=== PATIENT | male | born 1960 | race Two or more races ===

== ENCOUNTER 2018-10-31 10:49 | Day surgery (SDC) | payer OTHER ==
[2018-10-24 12:11] VITALS: BMI 36.6
[~2018-10-31 10:49] MED LIST: oxyCODONE HCL 10 MG SUSTAINED ACTING TABLET PO ONE
[2018-10-31] MEDS ORDERED: MIDAZOLAM HCL 2 MG/2 ML SINGLE DOSE VIAL ONE ×2 (13:07→14:24)
[2018-10-31] MEDS ORDERED: DEXAMETHASONE SOD PHOSPHATE/PF 10 MG/ML SDV ONE (13:07)
[2018-10-31] MEDS ORDERED: BUPIVACAINE HCL/PF 2.5 MG/ML - 30 ML VIAL IJ ONE (13:08)
[2018-10-31] MEDS ORDERED: THROMBIN (BOVINE) 5,000 UNIT VIAL TP ONE ×2 (13:19→13:24)
[2018-10-31] MEDS ORDERED: methylPREDNISolone ACET (DEPO) 40 MG/1 ML VIAL ONE (13:30)
[2018-10-31] MEDS ORDERED: LIDOCAINE 1%/EPI 1:100000 (20 ML MULTI DOSE VIAL) ONE (14:04)
[2018-10-31] MEDS ORDERED: ceFAZolin SODIUM 1 GM VIAL ONE (14:04)
[2018-10-31] MEDS ORDERED: ePHEDrine SULFATE 50 MG/1 ML AMPULE ONE (14:05)
[2018-10-31] MEDS ORDERED: methylPREDNISolone ACET (DEPO) 40 MG/1 ML VIAL IM ONE (14:40)
[2018-10-31] MEDS ORDERED: oxyCODONE HCL 5 MG TABLET PO PRN (15:44)
[2018-10-31] MEDS ORDERED: LACTATED RINGERS SOLUTION 1,000 ML IV SCH (15:45)
--- NOTE | 2018-10-31 15:46 | OP ---
Operative Note - Note: Operative Date: 10/31/18 Pre-Operative Diagnosis: lumbar stenosis Operation: laminectomy of L5-S1 Surgeon: Al Richardson Metal Miner: Emperatriz Arnold Anesthesiologist/[place] CLERK: Jany Junior Anesthesia: Spinal Estimated Blood Loss (mls): 20 Fluid Volume Replaced (mls): 1,400 Operative Report Dictated: Yes
--- NOTE | 2018-10-31 15:47 | SURG ---
Surgery Glaciologist Note Glaciologist: Emperatriz Arnold PA-C Date of Service: 10/31/18 Diagnosis: lumbar stenosis Procedure: laminectomy of L5-S1 I was present for the entirety of the operative procedure. For further detail, please refer to operative report. Visit type - Case Type Case Type: Scheduled - Emergency Emergency Visit: No - New patient This patient is new to me today: Yes Date on this admission: 10/31/18
[2018-10-31 15:52] VITALS: TEMP 97.9
[2018-10-31 18:08] VITALS: BP 108/62; PULSE 81
--- NOTE | 2018-11-01 18:10 | OP ---
DATE OF OPERATION: 10/31/2018 PREOPERATIVE DIAGNOSIS: Spinal stenosis L5-S1. POSTOPERATIVE DIAGNOSIS: Spinal stenosis L5-S1. PROCEDURE PERFORMED: Laminectomy L5-S1. SURGEON: Al Richardson MD LICENSED ESTHETICIAN: SANDRA Gonzales ESTIMATED BLOOD LOSS: 50 mL. INTRAVENOUS FLUIDS: Per anesthesia. ANESTHESIA: Spinal. COMPLICATIONS: None. DISPOSITION: Patient was brought to the PACU in stable condition. INDICATIONS FOR SURGERY: The patient is a 58-year-old gentleman who has been suffering from pain his back and down his legs. X-rays and MRI were completed and showed that he has spinal stenosis at L5-S1. He had gone through all conservative treatments for this, which include medications, physical therapy, as well as injections. Unfortunately his pain continued to persist despite all of this. At this point, the risks, benefits, and alternatives were discussed. The patient consented to surgery. DESCRIPTION OF PROCEDURE: The patient was brought to the operating room by anesthesia staff. After appropriate patient identification was performed, spinal anesthesia was given. The patient was able to position himself prone onto the [place] with all areas of bony prominences well-padded at this time. Two needles were placed into his back to karina off the L5-S1 segments. X-ray was taken to confirm this was correct. Needle was removed and 10 mL of lidocaine with epinephrine was injected into his back at this time. His back was prepped and draped in the sterile manner. At this point, timeout was completed. An incision was made from the top of L5 down to the bottom of S1. Dissection was carried down to the fascia. The fascia was opened at this time and appropriate retractors were then placed in. The spinal needle was placed onto the L5 lamina to karina off the L5-S1 level. X-ray was taken to confirm this was correct. Needle was removed and the microscope was brought in. Intraspinous ligament at L5-S1 was removed. A portion of the L5-S1 lamina was removed. A portion of the L5-S1 foramen was removed. A complete decompression was performed such that by the end of the procedure the S1 nerve root appeared to be well decompressed. All bleeding was well controlled at this time. Steroid was placed over the nerve root. FloSeal was placed over that. The fascia was closed with a number 1 running Vicryl suture. Subcutaneous tissues were closed with a 2-0 Vicryl suture. Skin was closed with 3-0 Monocryl suture. Dermabond was applied. Steri-Strips were applied. Sterile dressing was applied. Patient was placed supine on the hospital bed and brought to the PACU in stable condition. AL RICHARDSON M.D. [id number]
== END 2018-10-31 18:11 | disposition home or self-care (01) ==
LOC: FASU 10:49
PROVIDERS: ATTEND Orthopaedic Surgery Orthopaedic Surgery of the Spine
PROC: 01NB0ZZ Release Lumbar Nerve, Open Approach (ICD-10-PCS; principal; 2018-10-31 14:26)
DX: M48.07 Spinal stenosis, lumbosacral region (principal)
CPT/HCPCS: 72100-TC-FY; 76000-TC-FY; 94760